=== PATIENT | male | born 1970 | race Caucasian/White ===

== ENCOUNTER → 2020-05-20 | Outpatient (CLI) | payer OTHER ==
[~2020-05-20] VITALS: Ht 175.3 cm; Wt 70.3 kg
[~2020-05-20] MED LIST: ALLER-EASE180 MG PO; LIPITOR 20 MG T20 M1 PO
== END | disposition home or self-care (01) ==
LOC: GI 03-18 10:16
PROVIDERS: ATTEND Internal Medicine Gastroenterology
DX: Z12.11 Encounter for screening for malignant neoplasm of colon (principal); E78.00 Pure hypercholesterolemia, unspecified; Z98.890 Other specified postprocedural states; Z79.899 Other long term (current) drug therapy; Z11.59 Encounter for screening for other viral diseases; Z87.19 Personal history of other diseases of the digestive system
CPT/HCPCS: 62110; 62900